=== PATIENT | female | born 1995 | race African-American/Black ===

== ENCOUNTER 2017-01-01 20:42 | Emergency (ER) | payer OTHER ==
--- NOTE | ~2017-01-01 | CR63 ---
[facility] A Service of [facility] RADIOLOGY TEXT RESULTS PATIENT: IVETH ALEXANDER LOCATION: [facility] : [birth year] UNIT #: [id number] AGE: [address]: Veto Jj MD SEX: F ORDER DR: [id number] [facility] [address] [place], [place] [address] [id number] E MR#: [id number] Acc #: [id number] NAME: IVETH ALEXANDER : 1995 SEX: F STUDY DATE/TIME: 01/02/2017 0:04 UNIT: [facility] ROOM: STUDY DESCRIPTION: CR Chest 2 View Attending Physician: Veto Jj M.D. Ordering Physician: Veto Jj M.D. Primary Care Physician: Primary Care Physician No MEDICAL IMAGING REPORT This report is preliminary unless electronic signature is present EXAM Two-view chest INDICATIONS Chest pain and cough for 1 week. Body aches. FINDINGS PA and lateral views of the chest without comparison. Heart mediastinal contour is normal. Lungs are clear. No pleural effusion. IMPRESSION Negative chest radiograph. Dictated by... Valentino Valenzuela M.D. THIS IS AN ELECTRONICALLY VERIFIED REPORT Valentino Valenzuela M.D. at 01/02/2017 2:46 AM CHARLENE/jacey TD: 01/02/2017 01:24 JOB #: [id number] MEDICAL IMAGING REPORT Page 1 of 1 COPY
[2017-01-01 21:20] LABS: INFLUENZA A NEG (NEG); INFLUENZA B NEG (NEG)
== END 2017-01-02 01:10 | disposition home or self-care (01) ==
LOC: CED 20:42
PROVIDERS: Nurse Practitioner
DX: R05 Cough (principal)
CPT/HCPCS: 71020; 87804; 99283